=== PATIENT | male | born 1965 | race Caucasian/White ===

== ENCOUNTER 2021-07-08 11:49 | Inpatient (IN) | payer OTHER ==
[2021-07-08] MEDS ORDERED: ONDANSETRON *ODT* 4 MG TABLET SL PRN (12:50)
[2021-07-08] MEDS ORDERED: IBUPROFEN 400 MG TABLET (FP) PO PRN (12:50)
[2021-07-08] MEDS ORDERED: METHOCARBAMOL 500 MG TABLET PO PRN (12:50)
[2021-07-08] MEDS ORDERED: MAGNESIUM CITRATE 300 ML BOTTLE PO PRN (12:50)
[2021-07-08] MEDS ORDERED: NICOTINE 10 MG CARTRIDGE (INHALER) IH PRN (12:50)
[2021-07-08] MEDS ORDERED: ACETAMINOPHEN 325 MG TABLET (FP) PO PRN ×2 (12:50)
[2021-07-08] MEDS ORDERED: MAG HYDROX/AL HYDROX/SIMETH 30 ML UNIT-DOSE CUP PO PRN (12:50)
[2021-07-08] MEDS ORDERED: MENTHOL/PHENOL 1 EACH UD MM PRN (12:50)
[2021-07-08] MEDS ORDERED: MAGNESIUM HYDROX 2400MG/30ML ORAL SUSPENSION 30 ML CUP PO PRN (12:50)
[2021-07-08] MEDS ORDERED: BISMUTH SUBSALICYLATE 262 MG/15 ML BTL PO PRN (12:50)
[2021-07-08 13:03] VITALS: BMI 22.6
[2021-07-08] MEDS: hydrOXYzine PAMOATE 25 MG CAPSULE (FP) PO SCH ×3 (15:42→22:09)
[2021-07-08 16:03] LABS: HEMATOCRIT 36.9 % (35.4-49); HEMOGLOBIN 12.4 GM/dL (11.7-16.9); MCH 30.8 pg (25.7-33.7); MCHC 33.7 g/dl (32.0-35.9); MEAN CELL VOLUME 91.2 fl (80-96); MEAN PLT VOLUME 8.6 fl (7.5-11.1); PLATELET COUNT 253 10^3/uL (134-434); RBC 4.05 M/mm3 (4.00-5.60); RDW 13.7 % (11.9-15.9); WHITE BLOOD COUNT 7.3 K/mm3 (4.0-10.0)
[2021-07-08 16:11] LABS: ALBUMIN 3.3 g/dl (3.4-5.0); CALCIUM 8.7 mg/dL (8.5-10.1)
[2021-07-08 16:16] LABS: BILIRUBIN,TOTAL 0.4 mg/dL (0.2-1); TOT PROT 6.6 g/dl (6.4-8.2)
[2021-07-08] MEDS ORDERED: ALBUTEROL SO4 HFA INHALER IH PRN (19:07)
[2021-07-08] MEDS: MELATONIN 5 MG TABLETS PO SCH (22:09)
[2021-07-08] MEDS: THIAMINE HCL 100 MG TABLET (FP) PO SCH (22:09)
[2021-07-08] MEDS: lamoTRIgine 100 MG TABLET PO SCH (22:09)
[2021-07-08] MEDS: carBAMazepine 100 MG TAB.CHEW PO SCH (22:09)
[2021-07-09] MEDS: carBAMazepine 100 MG TAB.CHEW PO SCH ×3 (07:19→22:11)
[2021-07-09] MEDS: hydrOXYzine PAMOATE 25 MG CAPSULE (FP) PO SCH ×5 (07:21→22:11)
[2021-07-09] MEDS: PRENATAL VITAMINS W/ FOLIC ACID TABLET (FP) PO SCH (10:16)
[2021-07-09] MEDS: lamoTRIgine 100 MG TABLET PO SCH ×2 (10:17→22:11)
[2021-07-09] MEDS: MELATONIN 5 MG TABLETS PO SCH (22:11)
[2021-07-09] MEDS: THIAMINE HCL 100 MG TABLET (FP) PO SCH (22:11)
[2021-07-10] MEDS: carBAMazepine 100 MG TAB.CHEW PO SCH ×2 (06:57→14:34)
[2021-07-10] MEDS: hydrOXYzine PAMOATE 25 MG CAPSULE (FP) PO SCH ×3 (06:57→14:41)
[2021-07-10] MEDS: lamoTRIgine 100 MG TABLET PO SCH (10:18)
[2021-07-10] MEDS: PRENATAL VITAMINS W/ FOLIC ACID TABLET (FP) PO SCH (10:18)
[2021-07-10 13:27] VITALS: BP 124/65; PULSE 61; TEMP 98.6
== END 2021-07-10 14:44 | disposition other institution (70) | DRG 774 ==
LOC: YASAS 11:49 → UNDOADMIN 13:33 → Y3N 13:33
PROVIDERS: ADMIT Allergy & Immunology; ATTEND Allergy & Immunology
PROC: HZ2ZZZZ Detoxification Services for Substance Abuse Treatment (ICD-10-PCS; principal; 2021-07-08)
DX: F10.230 Alcohol dependence with withdrawal, uncomplicated (principal); F10.220 Alcohol dependence with intoxication, uncomplicated; F14.20 Cocaine dependence, uncomplicated; F17.210 Nicotine dependence, cigarettes, uncomplicated; G40.909 Epilepsy, unspecified, not intractable, without status epilepticus; E78.5 Hyperlipidemia, unspecified; M06.9 Rheumatoid arthritis, unspecified; R06.2 Wheezing
CPT/HCPCS: 36415; 80053; 85027; 86780; C9803; U0003; U0005

== ENCOUNTER 2021-07-10 14:57 | Inpatient (IN) | payer OTHER ==
[2021-07-10] MEDS ORDERED: guaiFENesin 200 MG/10 ML 10 ML UNIT-DOSE CUPS PO PRN (15:15)
[2021-07-10] MEDS ORDERED: hydrOXYzine PAMOATE 25 MG CAPSULE (FP) PO PRN (15:15)
[2021-07-10] MEDS ORDERED: MAG HYDROX/AL HYDROX/SIMETH 30 ML UNIT-DOSE CUP PO PRN (15:15)
[2021-07-10] MEDS ORDERED: MAGNESIUM CITRATE 300 ML BOTTLE PO PRN (15:15)
[2021-07-10] MEDS ORDERED: ACETAMINOPHEN 325 MG TABLET (FP) PO PRN (15:15)
[2021-07-10] MEDS ORDERED: MAGNESIUM HYDROX 2400MG/30ML ORAL SUSPENSION 30 ML CUP PO PRN (15:15)
[2021-07-10] MEDS ORDERED: P-EPHED 60MG/TRIPROLIDI 2.5MG TABLET PO PRN (15:15)
[2021-07-10] MEDS ORDERED: LOPERAMIDE HCL 2 MG CAPSULE PO PRN (15:15)
[2021-07-10] MEDS ORDERED: NICOTINE 10 MG CARTRIDGE (INHALER) IH PRN (15:15)
[2021-07-10] MEDS: THIAMINE HCL 100 MG TABLET (FP) PO SCH (22:01)
[2021-07-10] MEDS: lamoTRIgine 100 MG TABLET PO SCH (22:01)
[2021-07-10] MEDS: MELATONIN 5 MG TABLETS PO SCH (22:01)
[2021-07-10] MEDS: carBAMazepine 100 MG TAB.CHEW PO SCH (22:21)
[2021-07-11] MEDS: carBAMazepine 100 MG TAB.CHEW PO SCH ×3 (06:28→21:11)
[2021-07-11] MEDS: PRENATAL VITAMINS W/ FOLIC ACID TABLET (FP) PO SCH (13:12)
[2021-07-11] MEDS: lamoTRIgine 100 MG TABLET PO SCH ×2 (13:12→21:10)
[2021-07-11] MEDS: MENTHOL/PHENOL 1 EACH UD MM PRN (19:34)
[2021-07-11] MEDS: THIAMINE HCL 100 MG TABLET (FP) PO SCH (21:10)
[2021-07-11] MEDS: MELATONIN 5 MG TABLETS PO SCH (21:11)
[2021-07-12] MEDS: carBAMazepine 100 MG TAB.CHEW PO SCH ×3 (07:07→21:01)
[2021-07-12] MEDS: PRENATAL VITAMINS W/ FOLIC ACID TABLET (FP) PO SCH (10:00)
[2021-07-12] MEDS: lamoTRIgine 100 MG TABLET PO SCH ×2 (10:00→21:01)
[2021-07-12] MEDS: IBUPROFEN 400 MG TABLET (FP) PO PRN (10:10)
[2021-07-12] MEDS: THIAMINE HCL 100 MG TABLET (FP) PO SCH (21:00)
[2021-07-12] MEDS: MELATONIN 5 MG TABLETS PO SCH (21:01)
[2021-07-13] MEDS: carBAMazepine 100 MG TAB.CHEW PO SCH ×3 (06:27→21:48)
[2021-07-13] MEDS: MENTHOL/PHENOL 1 EACH UD MM PRN (06:29)
[2021-07-13] MEDS: PRENATAL VITAMINS W/ FOLIC ACID TABLET (FP) PO SCH (09:15)
[2021-07-13] MEDS: lamoTRIgine 100 MG TABLET PO SCH ×2 (09:15→21:48)
[2021-07-13] MEDS: IBUPROFEN 400 MG TABLET (FP) PO PRN (09:16)
[2021-07-13] MEDS: THIAMINE HCL 100 MG TABLET (FP) PO SCH (21:50)
[2021-07-13] MEDS: MELATONIN 5 MG TABLETS PO SCH (21:50)
[2021-07-14] MEDS: carBAMazepine 100 MG TAB.CHEW PO SCH (06:46)
[2021-07-14 07:01] VITALS: TEMP 99
[2021-07-14 09:41] VITALS: BP 139/96; PULSE 96
[2021-07-14] MEDS: lamoTRIgine 100 MG TABLET PO SCH (12:08)
[2021-07-14] MEDS: PRENATAL VITAMINS W/ FOLIC ACID TABLET (FP) PO SCH (12:08)
== END 2021-07-14 10:22 | disposition left against medical advice (07) | DRG 770 ==
LOC: YASAS 14:57 → Y3W 14:59
PROVIDERS: ADMIT Allergy & Immunology; ATTEND Allergy & Immunology
PROC: HZ42ZZZ Group Counseling for Substance Abuse Treatment, Cognitive-Behavioral (ICD-10-PCS; principal; 2021-07-10)
DX: F10.20 Alcohol dependence, uncomplicated (principal); F14.20 Cocaine dependence, uncomplicated; F17.210 Nicotine dependence, cigarettes, uncomplicated; I10 Essential (primary) hypertension; G40.909 Epilepsy, unspecified, not intractable, without status epilepticus; E78.5 Hyperlipidemia, unspecified; U07.1 COVID-19
CPT/HCPCS: 93005; 93010; C9803; U0003; U0005

== ENCOUNTER 2021-07-14 10:53 | Emergency (ER) | payer OTHER ==
[2021-07-14 11:44] VITALS: BP 131/75; PULSE 74; TEMP 98.3; BMI 28.3
== END 2021-07-14 18:33 ==
LOC: JER 10:53
DX: U07.1 COVID-19 (principal)
CPT/HCPCS: 99283-25; C9803; U0003; U0005

== ENCOUNTER 2021-08-29 13:47 | Inpatient (IN) | payer OTHER ==
[2021-08-29 15:43] VITALS: BMI 21.5
[2021-08-29] MEDS ORDERED: P-EPHED 60MG/TRIPROLIDI 2.5MG TABLET PO PRN (19:00)
[2021-08-29] MEDS ORDERED: LOPERAMIDE HCL 2 MG CAPSULE PO PRN (19:00)
[2021-08-29] MEDS ORDERED: NICOTINE 10 MG CARTRIDGE (INHALER) IH PRN (19:00)
[2021-08-29] MEDS ORDERED: MAGNESIUM HYDROX 2400MG/30ML ORAL SUSPENSION 30 ML CUP PO PRN (19:00)
[2021-08-29] MEDS ORDERED: guaiFENesin 200 MG/10 ML 10 ML UNIT-DOSE CUPS PO PRN (19:00)
[2021-08-29] MEDS ORDERED: MAGNESIUM CITRATE 300 ML BOTTLE PO PRN (19:00)
[2021-08-29] MEDS ORDERED: NICOTINE POLACRILEX 4 MG GUM BC PRN (19:00)
[2021-08-29] MEDS: hydrOXYzine PAMOATE 25 MG CAPSULE (FP) PO PRN (21:04)
[2021-08-29] MEDS: THIAMINE HCL 100 MG TABLET (FP) PO SCH (21:04)
[2021-08-29] MEDS: MELATONIN 5 MG TABLETS PO SCH (21:04)
[2021-08-30] MEDS: PRENATAL VITAMINS W/ FOLIC ACID TABLET (FP) PO SCH (10:03)
[2021-08-30] MEDS: hydrOXYzine PAMOATE 25 MG CAPSULE (FP) PO PRN (10:04)
[2021-08-30 10:51] LABS: ALBUMIN 3.5 g/dl (3.4-5.0)
[2021-08-30 10:53] LABS: BLOOD UREA NITROGEN 19.5 mg/dL (7-18); CREATININE 1.2 mg/dL (0.55-1.3)
[2021-08-30 10:55] LABS: BILIRUBIN,TOTAL 0.2 mg/dL (0.2-1); TOT PROT 6.4 g/dl (6.4-8.2)
[2021-08-30 11:06] LABS: HEMATOCRIT 42.1 % (35.4-49); HEMOGLOBIN 14.2 GM/dL (11.7-16.9); MCH 30.6 pg (25.7-33.7); MCHC 33.7 g/dl (32.0-35.9); MEAN CELL VOLUME 90.9 fl (80-96); MEAN PLT VOLUME 8.5 fl (7.5-11.1); PLATELET COUNT 215 10^3/uL (134-434); RBC 4.63 M/mm3 (4.00-5.60); RDW 14.1 % (11.9-15.9); WHITE BLOOD COUNT 6.1 K/mm3 (4.0-10.0)
[2021-08-30 11:08] LABS: SYPHILIS W/ RPR CONF NON-REACTIVE (NONREACTIVE)
[2021-08-30] MEDS: MELATONIN 5 MG TABLETS PO SCH (21:12)
[2021-08-30] MEDS: THIAMINE HCL 100 MG TABLET (FP) PO SCH (21:13)
[2021-08-31] MEDS: hydrOXYzine PAMOATE 25 MG CAPSULE (FP) PO PRN (06:52)
[2021-08-31] MEDS: lamoTRIgine 100 MG TABLET PO SCH ×2 (10:29→21:12)
[2021-08-31] MEDS: PRENATAL VITAMINS W/ FOLIC ACID TABLET (FP) PO SCH (10:30)
[2021-08-31] MEDS: carBAMazepine 100 MG TAB.CHEW PO SCH ×2 (13:58→21:12)
[2021-08-31] MEDS: MELATONIN 5 MG TABLETS PO SCH (21:12)
[2021-08-31] MEDS: THIAMINE HCL 100 MG TABLET (FP) PO SCH (21:12)
[2021-09-01] MEDS: carBAMazepine 100 MG TAB.CHEW PO SCH ×3 (07:11→21:06)
[2021-09-01] MEDS: lamoTRIgine 100 MG TABLET PO SCH ×2 (09:51→21:06)
[2021-09-01] MEDS: PRENATAL VITAMINS W/ FOLIC ACID TABLET (FP) PO SCH (09:51)
[2021-09-01] MEDS: LIDOCAINE 5% TOPICAL PATCH TP SCH (16:06)
[2021-09-01] MEDS: MAG HYDROX/AL HYDROX/SIMETH 30 ML UNIT-DOSE CUP PO PRN (18:08)
[2021-09-01] MEDS: METHOCARBAMOL 500 MG TABLET PO SCH ×2 (18:08→21:06)
[2021-09-01] MEDS: THIAMINE HCL 100 MG TABLET (FP) PO SCH (21:06)
[2021-09-01] MEDS: MELATONIN 5 MG TABLETS PO SCH (21:06)
[2021-09-01] MEDS: LIDOCAINE PATCH REMOVAL MC SCH (21:06)
[2021-09-02] MEDS: IBUPROFEN 400 MG TABLET (FP) PO PRN ×2 (07:09→21:21)
[2021-09-02] MEDS: carBAMazepine 100 MG TAB.CHEW PO SCH ×3 (07:10→21:20)
[2021-09-02] MEDS: METHOCARBAMOL 500 MG TABLET PO SCH ×4 (10:24→21:20)
[2021-09-02] MEDS: LIDOCAINE 5% TOPICAL PATCH TP SCH (10:24)
[2021-09-02] MEDS: PRENATAL VITAMINS W/ FOLIC ACID TABLET (FP) PO SCH (10:24)
[2021-09-02] MEDS: lamoTRIgine 100 MG TABLET PO SCH ×2 (10:24→21:19)
[2021-09-02 10:46] LABS: PH,URINE 6.5 (5.0-8.0); URINE APPEARANCE CLEAR; URINE BILIRUBIN NEGATIVE (NEGATIVE); URINE COLOR YELLOW; URINE GLUCOSE (UA) NEGATIVE (NEGATIVE); URINE KETONE NEGATIVE (NEGATIVE); URINE LEUK ESTERASE NEGATIVE (NEGATIVE); URINE NITRITE NEGATIVE (NEGATIVE); URINE PROTEIN NEGATIVE (NEGATIVE); URINE UROBILINOGEN 0.2 mg/dL (0.2-1.0)
[2021-09-02] MEDS: MAG HYDROX/AL HYDROX/SIMETH 30 ML UNIT-DOSE CUP PO PRN (17:42)
[2021-09-02] MEDS: MELATONIN 5 MG TABLETS PO SCH (21:20)
[2021-09-02] MEDS: THIAMINE HCL 100 MG TABLET (FP) PO SCH (21:20)
[2021-09-02] MEDS: LIDOCAINE PATCH REMOVAL MC SCH (21:20)
[2021-09-03] MEDS: carBAMazepine 100 MG TAB.CHEW PO SCH ×3 (06:38→21:23)
[2021-09-03] MEDS: LIDOCAINE 5% TOPICAL PATCH TP SCH (10:43)
[2021-09-03] MEDS: PRENATAL VITAMINS W/ FOLIC ACID TABLET (FP) PO SCH (10:44)
[2021-09-03] MEDS: METHOCARBAMOL 500 MG TABLET PO SCH ×4 (10:44→21:23)
[2021-09-03] MEDS: lamoTRIgine 100 MG TABLET PO SCH ×2 (10:44→21:23)
[2021-09-03] MEDS: IBUPROFEN 400 MG TABLET (FP) PO PRN (18:05)
[2021-09-03] MEDS: THIAMINE HCL 100 MG TABLET (FP) PO SCH (21:23)
[2021-09-03] MEDS: MELATONIN 5 MG TABLETS PO SCH (21:23)
[2021-09-03] MEDS: LIDOCAINE PATCH REMOVAL MC SCH (21:24)
[2021-09-03] MEDS: ACETAMINOPHEN 325 MG TABLET (FP) PO PRN (21:24)
[2021-09-04] MEDS: carBAMazepine 100 MG TAB.CHEW PO SCH ×3 (06:17→21:01)
[2021-09-04] MEDS: IBUPROFEN 400 MG TABLET (FP) PO PRN (06:19)
[2021-09-04] MEDS: PRENATAL VITAMINS W/ FOLIC ACID TABLET (FP) PO SCH (09:53)
[2021-09-04] MEDS: LIDOCAINE 5% TOPICAL PATCH TP SCH (09:53)
[2021-09-04] MEDS: lamoTRIgine 100 MG TABLET PO SCH ×2 (09:53→21:01)
[2021-09-04] MEDS: METHOCARBAMOL 500 MG TABLET PO SCH ×4 (09:53→21:01)
[2021-09-04] MEDS: MELATONIN 5 MG TABLETS PO SCH (21:01)
[2021-09-04] MEDS: THIAMINE HCL 100 MG TABLET (FP) PO SCH (21:01)
[2021-09-04] MEDS: LIDOCAINE PATCH REMOVAL MC SCH (21:02)
[2021-09-04] MEDS: MAG HYDROX/AL HYDROX/SIMETH 30 ML UNIT-DOSE CUP PO PRN (21:02)
[2021-09-05] MEDS: carBAMazepine 100 MG TAB.CHEW PO SCH ×3 (06:23→21:43)
[2021-09-05] MEDS: PRENATAL VITAMINS W/ FOLIC ACID TABLET (FP) PO SCH (10:16)
[2021-09-05] MEDS: METHOCARBAMOL 500 MG TABLET PO SCH ×4 (10:17→21:43)
[2021-09-05] MEDS: lamoTRIgine 100 MG TABLET PO SCH ×2 (10:17→21:43)
[2021-09-05] MEDS: LIDOCAINE 5% TOPICAL PATCH TP SCH (10:17)
[2021-09-05] MEDS: MAG HYDROX/AL HYDROX/SIMETH 30 ML UNIT-DOSE CUP PO PRN (11:50)
[2021-09-05] MEDS: IBUPROFEN 400 MG TABLET (FP) PO PRN (14:08)
[2021-09-05] MEDS: MELATONIN 5 MG TABLETS PO SCH (21:43)
[2021-09-05] MEDS: THIAMINE HCL 100 MG TABLET (FP) PO SCH (21:44)
[2021-09-05] MEDS: LIDOCAINE PATCH REMOVAL MC SCH (21:49)
[2021-09-06] MEDS: carBAMazepine 100 MG TAB.CHEW PO SCH ×3 (06:13→21:18)
[2021-09-06] MEDS: LIDOCAINE 5% TOPICAL PATCH TP SCH (09:30)
[2021-09-06] MEDS: lamoTRIgine 100 MG TABLET PO SCH ×2 (09:30→21:18)
[2021-09-06] MEDS: METHOCARBAMOL 500 MG TABLET PO SCH ×4 (09:31→21:18)
[2021-09-06] MEDS: PRENATAL VITAMINS W/ FOLIC ACID TABLET (FP) PO SCH (09:31)
[2021-09-06] MEDS ORDERED: MODERNA COVID-19 VACC,MRNA/PF 50 MCG/0.25 ML EACH IM ONE (12:00)
[2021-09-06] MEDS: COLLOIDAL OATMEAL 1 BAR EACH TP PRN (16:50)
[2021-09-06] MEDS: MAG HYDROX/AL HYDROX/SIMETH 30 ML UNIT-DOSE CUP PO PRN (18:15)
[2021-09-06] MEDS: MELATONIN 5 MG TABLETS PO SCH (21:18)
[2021-09-06] MEDS: THIAMINE HCL 100 MG TABLET (FP) PO SCH (21:18)
[2021-09-06] MEDS: LIDOCAINE PATCH REMOVAL MC SCH (21:19)
[2021-09-06] MEDS: AMMONIUM LACTATE 12% LOTION 225 GM BOTTLE TP SCH (21:19)
[2021-09-07] MEDS: carBAMazepine 100 MG TAB.CHEW PO SCH ×3 (06:06→21:14)
[2021-09-07] MEDS: METHOCARBAMOL 500 MG TABLET PO SCH ×4 (09:59→21:16)
[2021-09-07] MEDS: LIDOCAINE 5% TOPICAL PATCH TP SCH (09:59)
[2021-09-07] MEDS: AMMONIUM LACTATE 12% LOTION 225 GM BOTTLE TP SCH ×2 (09:59→21:16)
[2021-09-07] MEDS: PRENATAL VITAMINS W/ FOLIC ACID TABLET (FP) PO SCH (09:59)
[2021-09-07] MEDS: lamoTRIgine 100 MG TABLET PO SCH ×2 (09:59→21:15)
[2021-09-07] MEDS: IBUPROFEN 400 MG TABLET (FP) PO PRN (18:36)
[2021-09-07] MEDS: MELATONIN 5 MG TABLETS PO SCH (21:14)
[2021-09-07] MEDS: THIAMINE HCL 100 MG TABLET (FP) PO SCH (21:14)
[2021-09-07] MEDS: LIDOCAINE PATCH REMOVAL MC SCH (21:15)
[2021-09-08] MEDS: carBAMazepine 100 MG TAB.CHEW PO SCH ×3 (06:29→21:11)
[2021-09-08] MEDS: PRENATAL VITAMINS W/ FOLIC ACID TABLET (FP) PO SCH (10:00)
[2021-09-08] MEDS: LIDOCAINE 5% TOPICAL PATCH TP SCH (10:00)
[2021-09-08] MEDS: lamoTRIgine 100 MG TABLET PO SCH ×2 (10:00→21:11)
[2021-09-08] MEDS: AMMONIUM LACTATE 12% LOTION 225 GM BOTTLE TP SCH ×2 (10:00→21:12)
[2021-09-08] MEDS: METHOCARBAMOL 500 MG TABLET PO SCH ×4 (10:01→21:24)
[2021-09-08] MEDS: MELATONIN 5 MG TABLETS PO SCH (21:11)
[2021-09-08] MEDS: THIAMINE HCL 100 MG TABLET (FP) PO SCH (21:11)
[2021-09-08] MEDS: ACETAMINOPHEN 325 MG TABLET (FP) PO PRN (21:11)
[2021-09-08] MEDS: LIDOCAINE PATCH REMOVAL MC SCH (21:12)
[2021-09-09] MEDS: carBAMazepine 100 MG TAB.CHEW PO SCH ×3 (05:56→21:37)
[2021-09-09] MEDS: lamoTRIgine 100 MG TABLET PO SCH ×2 (09:54→21:38)
[2021-09-09] MEDS: METHOCARBAMOL 500 MG TABLET PO SCH ×4 (09:54→21:38)
[2021-09-09] MEDS: PRENATAL VITAMINS W/ FOLIC ACID TABLET (FP) PO SCH (09:54)
[2021-09-09] MEDS: LIDOCAINE 5% TOPICAL PATCH TP SCH (09:54)
[2021-09-09] MEDS: AMMONIUM LACTATE 12% LOTION 225 GM BOTTLE TP SCH ×2 (09:54→21:38)
[2021-09-09] MEDS: MAG HYDROX/AL HYDROX/SIMETH 30 ML UNIT-DOSE CUP PO PRN (19:44)
[2021-09-09] MEDS: LIDOCAINE PATCH REMOVAL MC SCH (21:38)
[2021-09-09] MEDS: MELATONIN 5 MG TABLETS PO SCH (21:38)
[2021-09-09] MEDS: THIAMINE HCL 100 MG TABLET (FP) PO SCH (21:38)
[2021-09-10] MEDS: carBAMazepine 100 MG TAB.CHEW PO SCH ×3 (06:52→21:02)
[2021-09-10] MEDS: COLLOIDAL OATMEAL 1 BAR EACH TP PRN (06:53)
[2021-09-10] MEDS: lamoTRIgine 100 MG TABLET PO SCH ×2 (10:20→21:01)
[2021-09-10] MEDS: AMMONIUM LACTATE 12% LOTION 225 GM BOTTLE TP SCH ×2 (10:22→21:02)
[2021-09-10] MEDS: BACITRACIN 0.9 GM PACKET TP SCH (10:22)
[2021-09-10] MEDS: LIDOCAINE 5% TOPICAL PATCH TP SCH (10:22)
[2021-09-10] MEDS: PRENATAL VITAMINS W/ FOLIC ACID TABLET (FP) PO SCH (11:55)
[2021-09-10] MEDS: METHOCARBAMOL 500 MG TABLET PO SCH ×4 (11:55→21:02)
[2021-09-10] MEDS: SIMETHICONE 80 MG TAB.CHEW (FP) PO PRN ×2 (12:56→18:11)
[2021-09-10] MEDS: THIAMINE HCL 100 MG TABLET (FP) PO SCH (21:01)
[2021-09-10] MEDS: MELATONIN 5 MG TABLETS PO SCH (21:02)
[2021-09-10] MEDS: LIDOCAINE PATCH REMOVAL MC SCH (21:02)
[2021-09-11] MEDS: carBAMazepine 100 MG TAB.CHEW PO SCH ×3 (06:44→21:05)
[2021-09-11] MEDS: PRENATAL VITAMINS W/ FOLIC ACID TABLET (FP) PO SCH (09:29)
[2021-09-11] MEDS: AMMONIUM LACTATE 12% LOTION 225 GM BOTTLE TP SCH ×2 (09:29→21:06)
[2021-09-11] MEDS: BACITRACIN 0.9 GM PACKET TP SCH (09:30)
[2021-09-11] MEDS: METHOCARBAMOL 500 MG TABLET PO SCH ×4 (09:30→21:07)
[2021-09-11] MEDS: lamoTRIgine 100 MG TABLET PO SCH ×2 (09:30→21:05)
[2021-09-11] MEDS: ACETAMINOPHEN 325 MG TABLET (FP) PO PRN (09:31)
[2021-09-11] MEDS: LIDOCAINE 5% TOPICAL PATCH TP SCH (09:31)
[2021-09-11] MEDS: SIMETHICONE 80 MG TAB.CHEW (FP) PO PRN ×2 (16:43→21:06)
[2021-09-11] MEDS: THIAMINE HCL 100 MG TABLET (FP) PO SCH (21:05)
[2021-09-11] MEDS: MELATONIN 5 MG TABLETS PO SCH (21:05)
[2021-09-11] MEDS: LIDOCAINE PATCH REMOVAL MC SCH (21:06)
[2021-09-12] MEDS: carBAMazepine 100 MG TAB.CHEW PO SCH ×3 (06:48→21:25)
[2021-09-12] MEDS: LIDOCAINE 5% TOPICAL PATCH TP SCH (09:38)
[2021-09-12] MEDS: BACITRACIN 0.9 GM PACKET TP SCH (09:38)
[2021-09-12] MEDS: PRENATAL VITAMINS W/ FOLIC ACID TABLET (FP) PO SCH (09:38)
[2021-09-12] MEDS: lamoTRIgine 100 MG TABLET PO SCH ×2 (09:38→21:25)
[2021-09-12] MEDS: AMMONIUM LACTATE 12% LOTION 225 GM BOTTLE TP SCH ×2 (09:38→21:25)
[2021-09-12] MEDS: METHOCARBAMOL 500 MG TABLET PO SCH ×4 (09:38→21:26)
[2021-09-12] MEDS: SIMETHICONE 80 MG TAB.CHEW (FP) PO PRN (13:38)
[2021-09-12] MEDS: THIAMINE HCL 100 MG TABLET (FP) PO SCH (21:25)
[2021-09-12] MEDS: MELATONIN 5 MG TABLETS PO SCH (21:25)
[2021-09-12] MEDS: LIDOCAINE PATCH REMOVAL MC SCH (21:25)
[2021-09-13] MEDS: carBAMazepine 100 MG TAB.CHEW PO SCH ×3 (06:16→21:02)
[2021-09-13] MEDS: BACITRACIN 0.9 GM PACKET TP SCH (09:56)
[2021-09-13] MEDS: METHOCARBAMOL 500 MG TABLET PO SCH ×4 (09:56→21:56)
[2021-09-13] MEDS: PRENATAL VITAMINS W/ FOLIC ACID TABLET (FP) PO SCH (09:56)
[2021-09-13] MEDS: lamoTRIgine 100 MG TABLET PO SCH ×2 (09:56→21:01)
[2021-09-13] MEDS: AMMONIUM LACTATE 12% LOTION 225 GM BOTTLE TP SCH ×2 (09:57→21:56)
[2021-09-13] MEDS: SIMETHICONE 80 MG TAB.CHEW (FP) PO PRN ×2 (09:58→21:03)
[2021-09-13] MEDS: LIDOCAINE 5% TOPICAL PATCH TP SCH (10:41)
[2021-09-13] MEDS: THIAMINE HCL 100 MG TABLET (FP) PO SCH (21:02)
[2021-09-13] MEDS: MELATONIN 5 MG TABLETS PO SCH (21:02)
[2021-09-13] MEDS: LIDOCAINE PATCH REMOVAL MC SCH (21:56)
[2021-09-14] MEDS: carBAMazepine 100 MG TAB.CHEW PO SCH ×3 (06:11→21:06)
[2021-09-14] MEDS: METHOCARBAMOL 500 MG TABLET PO SCH ×4 (09:51→21:07)
[2021-09-14] MEDS: BACITRACIN 0.9 GM PACKET TP SCH (09:51)
[2021-09-14] MEDS: LIDOCAINE 5% TOPICAL PATCH TP SCH (09:51)
[2021-09-14] MEDS: PRENATAL VITAMINS W/ FOLIC ACID TABLET (FP) PO SCH (09:51)
[2021-09-14] MEDS: lamoTRIgine 100 MG TABLET PO SCH ×2 (09:51→21:06)
[2021-09-14] MEDS: AMMONIUM LACTATE 12% LOTION 225 GM BOTTLE TP SCH ×2 (09:51→21:07)
[2021-09-14] MEDS: ACETAMINOPHEN 325 MG TABLET (FP) PO PRN (09:52)
[2021-09-14] MEDS: SIMETHICONE 80 MG TAB.CHEW (FP) PO PRN ×2 (09:52→21:06)
[2021-09-14] MEDS: THIAMINE HCL 100 MG TABLET (FP) PO SCH (21:06)
[2021-09-14] MEDS: MELATONIN 5 MG TABLETS PO SCH (21:06)
[2021-09-14] MEDS: LIDOCAINE PATCH REMOVAL MC SCH (21:07)
[2021-09-15] MEDS: carBAMazepine 100 MG TAB.CHEW PO SCH ×3 (06:31→21:02)
[2021-09-15] MEDS: BACITRACIN 0.9 GM PACKET TP SCH (09:51)
[2021-09-15] MEDS: PRENATAL VITAMINS W/ FOLIC ACID TABLET (FP) PO SCH (09:51)
[2021-09-15] MEDS: lamoTRIgine 100 MG TABLET PO SCH ×2 (09:51→21:02)
[2021-09-15] MEDS: AMMONIUM LACTATE 12% LOTION 225 GM BOTTLE TP SCH ×2 (09:52→21:03)
[2021-09-15] MEDS: COLLOIDAL OATMEAL 1 BAR EACH TP PRN (09:52)
[2021-09-15] MEDS: LIDOCAINE 5% TOPICAL PATCH TP SCH (09:53)
[2021-09-15] MEDS: METHOCARBAMOL 500 MG TABLET PO SCH ×4 (09:53→21:03)
[2021-09-15] MEDS: MELATONIN 5 MG TABLETS PO SCH (21:02)
[2021-09-15] MEDS: THIAMINE HCL 100 MG TABLET (FP) PO SCH (21:03)
[2021-09-15] MEDS: LIDOCAINE PATCH REMOVAL MC SCH (21:03)
[2021-09-16] MEDS: carBAMazepine 100 MG TAB.CHEW PO SCH (06:14)
[2021-09-16 06:53] VITALS: BP 138/84; PULSE 62; TEMP 98.2
[2021-09-16] MEDS: lamoTRIgine 100 MG TABLET PO SCH (09:09)
[2021-09-16] MEDS: METHOCARBAMOL 500 MG TABLET PO SCH (09:09)
[2021-09-16] MEDS: PRENATAL VITAMINS W/ FOLIC ACID TABLET (FP) PO SCH (09:09)
[2021-09-16] MEDS: LIDOCAINE 5% TOPICAL PATCH TP SCH (09:09)
== END 2021-09-16 09:12 | disposition home or self-care (01) | DRG 774 ==
LOC: YASAS 13:47 → Y3W 19:08
PROVIDERS: ADMIT Allergy & Immunology; ATTEND Allergy & Immunology
DX: F10.20 Alcohol dependence, uncomplicated (principal); F14.20 Cocaine dependence, uncomplicated; F17.210 Nicotine dependence, cigarettes, uncomplicated; F41.9 Anxiety disorder, unspecified; K21.9 Gastro-esophageal reflux disease without esophagitis; M06.9 Rheumatoid arthritis, unspecified; M54.50 Low back pain, unspecified; G89.29 Other chronic pain; R26.89 Other abnormalities of gait and mobility; R63.4 Abnormal weight loss; Z68.21 Body mass index [BMI] 21.0-21.9, adult; Z99.89 Dependence on other enabling machines and devices; Z86.16 Personal history of COVID-19
CPT/HCPCS: 0013A; 36415; 80053; 80156; 81003; 85027; 86780; 86803; 91301; C9803; U0003; U0005

== ENCOUNTER 2022-01-15 12:46 | Inpatient (IN) | payer OTHER ==
[2022-01-15] MEDS ORDERED: LORazepam 2 MG/ML SDV VIAL IM ONE (13:44)
[2022-01-15] MEDS ORDERED: LOPERAMIDE HCL 2 MG CAPSULE PO PRN (23:04)
[2022-01-15] MEDS ORDERED: NICOTINE POLACRILEX 2 MG GUM BC PRN (23:04)
[2022-01-15] MEDS ORDERED: P-EPHED 60MG/TRIPROLIDI 2.5MG TABLET PO PRN (23:04)
[2022-01-15] MEDS ORDERED: MAG HYDROX/AL HYDROX/SIMETH 30 ML UNIT-DOSE CUP PO PRN (23:04)
[2022-01-15] MEDS ORDERED: guaiFENesin 200 MG/10 ML 10 ML UNIT-DOSE CUPS PO PRN (23:04)
[2022-01-15] MEDS ORDERED: ACETAMINOPHEN 325 MG TABLET (FP) PO PRN (23:04)
[2022-01-15] MEDS ORDERED: IBUPROFEN 400 MG TABLET (FP) PO PRN (23:04)
[2022-01-15] MEDS ORDERED: MAGNESIUM CITRATE 300 ML BOTTLE PO PRN (23:04)
[2022-01-15] MEDS ORDERED: MAGNESIUM HYDROX 2400MG/30ML ORAL SUSPENSION 30 ML CUP PO PRN (23:04)
[2022-01-15 23:34] VITALS: BMI 25.1
[2022-01-16] MEDS: MELATONIN 5 MG TABLETS PO SCH ×2 (04:12→21:45)
[2022-01-16 09:39] LABS: CALCIUM 8.4 mg/dL (8.5-10.1)
[2022-01-16 09:40] LABS: ALBUMIN 3.5 g/dl (3.4-5.0); BLOOD UREA NITROGEN 23.7 mg/dL (7-18)
[2022-01-16 09:43] LABS: CREATININE 1.3 mg/dL (0.55-1.3)
[2022-01-16 09:44] LABS: BILIRUBIN,TOTAL 0.9 mg/dL (0.2-1)
[2022-01-16 09:45] LABS: TOT PROT 6.4 g/dl (6.4-8.2)
[2022-01-16 09:48] LABS: HEMATOCRIT 38.7 % (35.4-49); HEMOGLOBIN 12.8 GM/dL (11.7-16.9); MCH 30.6 pg (25.7-33.7); MCHC 33.1 g/dl (32.0-35.9); MEAN CELL VOLUME 92.5 fl (80-96); MEAN PLT VOLUME 8.9 fl (7.5-11.1); PLATELET COUNT 211 10^3/uL (134-434); RBC 4.18 M/mm3 (4.00-5.60); RDW 13.3 % (11.9-15.9); WHITE BLOOD COUNT 11.7 K/mm3 (4.0-10.0)
[2022-01-16] MEDS: NICOTINE 21 MG/24 HOURS TOPICAL PATCH TD SCH (10:51)
[2022-01-16] MEDS: PRENATAL VITAMINS W/ FOLIC ACID TABLET (FP) PO SCH (10:51)
[2022-01-16] MEDS: hydrOXYzine PAMOATE 25 MG CAPSULE (FP) PO PRN (10:51)
[2022-01-16 10:52] LABS: SYPHILIS W/ RPR CONF NON-REACTIVE (NONREACTIVE)
[2022-01-16] MEDS: lamoTRIgine 100 MG TABLET PO SCH ×2 (11:23→21:45)
[2022-01-16] MEDS: THIAMINE HCL 100 MG TABLET (FP) PO SCH (21:45)
[2022-01-16] MEDS: carBAMazepine 100 MG TAB.CHEW PO SCH ×2 (21:45→22:25)
[2022-01-17] MEDS: carBAMazepine 100 MG TAB.CHEW PO SCH ×3 (06:30→21:28)
[2022-01-17] MEDS: PRENATAL VITAMINS W/ FOLIC ACID TABLET (FP) PO SCH (10:01)
[2022-01-17] MEDS: lamoTRIgine 100 MG TABLET PO SCH ×2 (10:01→21:27)
[2022-01-17] MEDS: NICOTINE 21 MG/24 HOURS TOPICAL PATCH TD SCH (10:02)
[2022-01-17 10:43] LABS: URINE APPEARANCE CLEAR; URINE BILIRUBIN NEGATIVE (NEGATIVE); URINE COLOR YELLOW; URINE GLUCOSE (UA) NEGATIVE (NEGATIVE); URINE KETONE NEGATIVE (NEGATIVE); URINE LEUK ESTERASE NEGATIVE (NEGATIVE); URINE NITRITE NEGATIVE (NEGATIVE); URINE PROTEIN TRACE (NEGATIVE); URINE UROBILINOGEN 0.2 mg/dL (0.2-1.0)
[2022-01-17 10:49] LABS: EPI CELLS 8 /uL (0-25.1); HYALINE CASTS 2 /uL (0-3.1); URINE BACTERIA 12 /uL (0-1359); URINE RBC 23 /uL (0-23.9); URINE WBC 9 /uL (0-25.8)
[2022-01-17] MEDS: MELATONIN 5 MG TABLETS PO SCH (21:27)
[2022-01-17] MEDS: THIAMINE HCL 100 MG TABLET (FP) PO SCH (21:28)
[2022-01-18] MEDS: carBAMazepine 100 MG TAB.CHEW PO SCH ×3 (06:25→22:01)
[2022-01-18] MEDS: NICOTINE 21 MG/24 HOURS TOPICAL PATCH TD SCH (09:43)
[2022-01-18] MEDS: lamoTRIgine 100 MG TABLET PO SCH ×2 (09:43→22:01)
[2022-01-18] MEDS: PRENATAL VITAMINS W/ FOLIC ACID TABLET (FP) PO SCH (09:43)
[2022-01-18] MEDS: MELATONIN 5 MG TABLETS PO SCH (22:01)
[2022-01-18] MEDS: THIAMINE HCL 100 MG TABLET (FP) PO SCH (22:01)
[2022-01-19] MEDS: carBAMazepine 100 MG TAB.CHEW PO SCH ×3 (06:22→21:01)
[2022-01-19] MEDS: PRENATAL VITAMINS W/ FOLIC ACID TABLET (FP) PO SCH (09:59)
[2022-01-19] MEDS: NICOTINE 21 MG/24 HOURS TOPICAL PATCH TD SCH (09:59)
[2022-01-19] MEDS: lamoTRIgine 100 MG TABLET PO SCH ×2 (09:59→21:01)
[2022-01-19] MEDS: MELATONIN 5 MG TABLETS PO SCH (21:01)
[2022-01-19] MEDS: THIAMINE HCL 100 MG TABLET (FP) PO SCH (21:01)
[2022-01-20] MEDS: carBAMazepine 100 MG TAB.CHEW PO SCH ×3 (05:58→21:34)
[2022-01-20] MEDS: lamoTRIgine 100 MG TABLET PO SCH ×2 (10:01→21:34)
[2022-01-20] MEDS: PRENATAL VITAMINS W/ FOLIC ACID TABLET (FP) PO SCH (10:01)
[2022-01-20] MEDS: NICOTINE 21 MG/24 HOURS TOPICAL PATCH TD SCH (10:02)
[2022-01-20] MEDS: MELATONIN 5 MG TABLETS PO SCH (21:34)
[2022-01-20] MEDS: THIAMINE HCL 100 MG TABLET (FP) PO SCH (21:34)
[2022-01-21] MEDS: carBAMazepine 100 MG TAB.CHEW PO SCH ×3 (06:13→22:06)
[2022-01-21] MEDS: hydrOXYzine PAMOATE 25 MG CAPSULE (FP) PO PRN (10:06)
[2022-01-21] MEDS: lamoTRIgine 100 MG TABLET PO SCH ×2 (10:06→22:06)
[2022-01-21] MEDS: PRENATAL VITAMINS W/ FOLIC ACID TABLET (FP) PO SCH (10:06)
[2022-01-21] MEDS: NICOTINE 21 MG/24 HOURS TOPICAL PATCH TD SCH (10:58)
[2022-01-21] MEDS ORDERED: NICOTINE 10 MG CARTRIDGE (INHALER) IH PRN (11:30)
[2022-01-21] MEDS ORDERED: NICOTINE 21 MG/24 HOURS TOPICAL PATCH TD PRN (11:31)
[2022-01-21] MEDS: THIAMINE HCL 100 MG TABLET (FP) PO SCH (22:06)
[2022-01-21] MEDS: MELATONIN 5 MG TABLETS PO SCH (22:06)
[2022-01-22] MEDS: carBAMazepine 100 MG TAB.CHEW PO SCH ×3 (06:57→21:01)
[2022-01-22] MEDS: lamoTRIgine 100 MG TABLET PO SCH ×2 (10:17→21:01)
[2022-01-22] MEDS: PRENATAL VITAMINS W/ FOLIC ACID TABLET (FP) PO SCH (10:17)
[2022-01-22] MEDS: hydrOXYzine PAMOATE 25 MG CAPSULE (FP) PO PRN (13:35)
[2022-01-22] MEDS: THIAMINE HCL 100 MG TABLET (FP) PO SCH (21:01)
[2022-01-22] MEDS: MELATONIN 5 MG TABLETS PO SCH (21:01)
[2022-01-23] MEDS: carBAMazepine 100 MG TAB.CHEW PO SCH ×3 (06:49→21:29)
[2022-01-23] MEDS: PRENATAL VITAMINS W/ FOLIC ACID TABLET (FP) PO SCH (10:07)
[2022-01-23] MEDS: lamoTRIgine 100 MG TABLET PO SCH ×2 (10:07→21:28)
[2022-01-23] MEDS: hydrOXYzine PAMOATE 25 MG CAPSULE (FP) PO PRN (13:56)
[2022-01-23] MEDS: MELATONIN 5 MG TABLETS PO SCH (21:29)
[2022-01-23] MEDS: THIAMINE HCL 100 MG TABLET (FP) PO SCH (21:29)
[2022-01-24] MEDS: carBAMazepine 100 MG TAB.CHEW PO SCH ×3 (06:54→21:36)
[2022-01-24] MEDS: lamoTRIgine 100 MG TABLET PO SCH ×2 (10:49→21:36)
[2022-01-24] MEDS: PRENATAL VITAMINS W/ FOLIC ACID TABLET (FP) PO SCH (10:49)
[2022-01-24] MEDS: hydrOXYzine PAMOATE 25 MG CAPSULE (FP) PO PRN (14:54)
[2022-01-24] MEDS: MELATONIN 5 MG TABLETS PO SCH (21:36)
[2022-01-24] MEDS: THIAMINE HCL 100 MG TABLET (FP) PO SCH (21:36)
[2022-01-25] MEDS: carBAMazepine 100 MG TAB.CHEW PO SCH ×3 (06:47→21:00)
[2022-01-25] MEDS: PRENATAL VITAMINS W/ FOLIC ACID TABLET (FP) PO SCH (10:26)
[2022-01-25] MEDS: lamoTRIgine 100 MG TABLET PO SCH ×2 (10:26→21:00)
[2022-01-25] MEDS: hydrOXYzine PAMOATE 25 MG CAPSULE (FP) PO PRN (13:53)
[2022-01-25] MEDS: THIAMINE HCL 100 MG TABLET (FP) PO SCH (21:00)
[2022-01-25] MEDS: MELATONIN 5 MG TABLETS PO SCH (21:00)
[2022-01-26] MEDS: carBAMazepine 100 MG TAB.CHEW PO SCH ×3 (06:33→21:00)
[2022-01-26] MEDS: PRENATAL VITAMINS W/ FOLIC ACID TABLET (FP) PO SCH (10:13)
[2022-01-26] MEDS: lamoTRIgine 100 MG TABLET PO SCH ×2 (10:13→21:00)
[2022-01-26] MEDS: hydrOXYzine PAMOATE 25 MG CAPSULE (FP) PO PRN (14:08)
[2022-01-26] MEDS: MELATONIN 5 MG TABLETS PO SCH (21:00)
[2022-01-26] MEDS: THIAMINE HCL 100 MG TABLET (FP) PO SCH (21:00)
[2022-01-27] MEDS: carBAMazepine 100 MG TAB.CHEW PO SCH ×3 (06:52→21:01)
[2022-01-27] MEDS: lamoTRIgine 100 MG TABLET PO SCH ×2 (10:24→21:00)
[2022-01-27] MEDS: PRENATAL VITAMINS W/ FOLIC ACID TABLET (FP) PO SCH (10:24)
[2022-01-27] MEDS: hydrOXYzine PAMOATE 25 MG CAPSULE (FP) PO PRN (14:16)
[2022-01-27] MEDS: THIAMINE HCL 100 MG TABLET (FP) PO SCH (21:01)
[2022-01-27] MEDS: MELATONIN 5 MG TABLETS PO SCH (21:01)
[2022-01-28] MEDS: carBAMazepine 100 MG TAB.CHEW PO SCH ×3 (06:43→21:00)
[2022-01-28] MEDS: PRENATAL VITAMINS W/ FOLIC ACID TABLET (FP) PO SCH (10:31)
[2022-01-28] MEDS: lamoTRIgine 100 MG TABLET PO SCH ×2 (10:31→21:00)
[2022-01-28] MEDS: hydrOXYzine PAMOATE 25 MG CAPSULE (FP) PO PRN (14:42)
[2022-01-28] MEDS: THIAMINE HCL 100 MG TABLET (FP) PO SCH (21:00)
[2022-01-28] MEDS: MELATONIN 5 MG TABLETS PO SCH (21:01)
[2022-01-29] MEDS: carBAMazepine 100 MG TAB.CHEW PO SCH ×3 (05:48→21:02)
[2022-01-29] MEDS: PRENATAL VITAMINS W/ FOLIC ACID TABLET (FP) PO SCH (09:43)
[2022-01-29] MEDS: lamoTRIgine 100 MG TABLET PO SCH ×2 (09:43→21:01)
[2022-01-29] MEDS: MELATONIN 5 MG TABLETS PO SCH (21:01)
[2022-01-29] MEDS: THIAMINE HCL 100 MG TABLET (FP) PO SCH (21:02)
[2022-01-30] MEDS: carBAMazepine 100 MG TAB.CHEW PO SCH ×3 (06:03→21:03)
[2022-01-30 08:33] VITALS: PULSE 67
[2022-01-30] MEDS: PRENATAL VITAMINS W/ FOLIC ACID TABLET (FP) PO SCH (10:25)
[2022-01-30] MEDS: lamoTRIgine 100 MG TABLET PO SCH ×2 (10:25→21:03)
[2022-01-30] MEDS: hydrOXYzine PAMOATE 25 MG CAPSULE (FP) PO PRN (13:41)
[2022-01-30] MEDS: MELATONIN 5 MG TABLETS PO SCH (21:03)
[2022-01-30] MEDS: THIAMINE HCL 100 MG TABLET (FP) PO SCH (21:04)
[2022-01-31] MEDS: carBAMazepine 100 MG TAB.CHEW PO SCH (06:09)
[2022-01-31 07:05] VITALS: BP 127/67; TEMP 98.7
== END 2022-01-31 09:17 | disposition home or self-care (01) | DRG 772 ==
LOC: YASAS 12:46 → Y3W 01-16 03:10
PROVIDERS: ADMIT Allergy & Immunology; ATTEND Psychiatry & Neurology Pain Medicine
PROC: HZ42ZZZ Group Counseling for Substance Abuse Treatment, Cognitive-Behavioral (ICD-10-PCS; principal; 2022-01-16)
DX: F10.20 Alcohol dependence, uncomplicated (principal); F14.20 Cocaine dependence, uncomplicated; F17.210 Nicotine dependence, cigarettes, uncomplicated; F19.282 Other psychoactive substance dependence with psychoactive substance-induced sleep disorder; F41.9 Anxiety disorder, unspecified; G40.909 Epilepsy, unspecified, not intractable, without status epilepticus; E78.5 Hyperlipidemia, unspecified; K21.9 Gastro-esophageal reflux disease without esophagitis; M06.9 Rheumatoid arthritis, unspecified; M54.50 Low back pain, unspecified; G89.29 Other chronic pain; Z91.81 History of falling
CPT/HCPCS: 36415; 70450-TC; 72125-TC; 80053; 80156; 80175; 80307; 81003; 82962; 83735; 84100; 85025; 85027; 86780; 86803; 87811; C9803-CS; U0003; U0005

== ENCOUNTER 2022-11-08 17:12 | Inpatient (IN) | payer OTHER ==
[2022-11-08 20:16] VITALS: BMI 24.6
[2022-11-08] MEDS ORDERED: BENZOCAINE/MENTHOL (CHLORASEPTIC ) LOZENGE MM PRN (22:32)
[2022-11-08] MEDS ORDERED: MAGNESIUM HYDROX 2400MG/30ML ORAL SUSPENSION 30 ML CUP PO PRN (22:32)
[2022-11-08] MEDS ORDERED: ACETAMINOPHEN 325 MG TABLET (FP) PO PRN (22:32)
[2022-11-08] MEDS ORDERED: POLYETHYLENE GLYCOL (HEALTHYLAX) 3350 17 GM PACKET PO PRN (22:32)
[2022-11-08] MEDS ORDERED: NALOXONE HCL (KLOXXADO) 8 MG SPRAY NS PRN (22:32)
[2022-11-08] MEDS ORDERED: NALOXONE HCL 0.4 MG/ML VIAL IM PRN (22:32)
[2022-11-08] MEDS ORDERED: IBUPROFEN 600 MG TABLET (FP) PO PRN (22:32)
[2022-11-08] MEDS ORDERED: COLLOIDAL OATMEAL 1 BAR EACH TP PRN (22:32)
[2022-11-08] MEDS ORDERED: BENZONATATE 200 MG CAPSULE PO PRN (22:32)
[2022-11-08] MEDS ORDERED: NICOTINE 10 MG CARTRIDGE (INHALER) IH PRN (22:32)
[2022-11-08] MEDS ORDERED: IBUPROFEN 400 MG TABLET (FP) PO PRN (22:32)
[2022-11-08] MEDS ORDERED: AMMONIUM LACTATE 12% LOTION 225 GM BOTTLE TP PRN (22:32)
[2022-11-08] MEDS ORDERED: guaiFENesin 600 MG TABLET.ER (FP) PO PRN (22:32)
[2022-11-08] MEDS ORDERED: LOPERAMIDE HCL 2 MG CAPSULE PO PRN (22:32)
[2022-11-08] MEDS ORDERED: MAG HYDROX/AL HYDROX/SIMETH 30 ML UNIT-DOSE CUP PO PRN (22:32)
[2022-11-09] MEDS ORDERED: TUBERCULIN PPD 5 TU/0.1ML SYRINGE (IN PATIENT USE ONLY) ID ONE (02:00)
[2022-11-09] MEDS: MELATONIN 5 MG TABLETS PO SCH ×2 (02:06→21:28)
[2022-11-09] MEDS ORDERED: TUBERCULIN PPD 5 TU/0.1ML VIAL ID ONE (06:09)
[2022-11-09] MEDS: PRENATAL VITAMINS W/ FOLIC ACID TABLET (FP) PO SCH (09:24)
[2022-11-09] MEDS: NICOTINE 14 MG/24 HOURS TOPICAL PATCH TD SCH (09:25)
[2022-11-09] MEDS: lamoTRIgine 100 MG TABLET PO SCH ×2 (10:05→21:29)
[2022-11-09 11:05] LABS: HEMATOCRIT 38.6 % (35.4-49); HEMOGLOBIN 13.6 GM/dL (11.7-16.9); MCH 31.4 pg (25.7-33.7); MCHC 35.1 g/dl (32.0-35.9); MEAN CELL VOLUME 89.2 fl (80-96); MEAN PLT VOLUME 9.2 fl (7.5-11.1); PLATELET COUNT 208 10^3/uL (134-434); RBC 4.33 M/mm3 (4.00-5.60); RDW 13.2 % (11.9-15.9); WHITE BLOOD COUNT 5.6 K/mm3 (4.0-10.0)
[2022-11-09 11:20] LABS: CALCIUM 8.9 mg/dL (8.5-10.1)
[2022-11-09 11:21] LABS: ALBUMIN 3.2 g/dl (3.4-5.0); BLOOD UREA NITROGEN 22.2 mg/dL (7-18)
[2022-11-09 11:24] LABS: CREATININE 1.7 mg/dL (0.55-1.3)
[2022-11-09 11:25] LABS: BILIRUBIN,TOTAL 0.4 mg/dL (0.2-1); TOT PROT 6.2 g/dl (6.4-8.2)
[2022-11-09 11:39] LABS: URINE APPEARANCE CLEAR; URINE BILIRUBIN NEGATIVE (NEGATIVE); URINE COLOR YELLOW; URINE GLUCOSE (UA) NEGATIVE (NEGATIVE)
[2022-11-09 11:40] LABS: PH,URINE 5.5 (5.0-8.0); URINE KETONE NEGATIVE (NEGATIVE); URINE LEUK ESTERASE NEGATIVE (NEGATIVE); URINE NITRITE NEGATIVE (NEGATIVE); URINE PROTEIN TRACE (NEGATIVE); URINE RBC 3.1 /uL (0-23.9); URINE UROBILINOGEN 0.2 mg/dL (0.2-1.0); URINE WBC 8.5 /uL (0-25.8)
[2022-11-09 11:41] LABS: EPI CELLS 3.6 /uL (0-25.1); HYALINE CASTS 1.1 /uL (0-3.1); URINE BACTERIA 0.9 /uL (0-1359)
[2022-11-09] MEDS: carBAMazepine 100 MG TAB.CHEW PO SCH ×2 (13:32→21:29)
[2022-11-09] MEDS: THIAMINE HCL 100 MG TABLET (FP) PO SCH (21:29)
[2022-11-09] MEDS: hydrOXYzine PAMOATE 25 MG CAPSULE (FP) PO PRN (21:29)
[2022-11-10] MEDS: carBAMazepine 100 MG TAB.CHEW PO SCH ×3 (06:24→21:23)
[2022-11-10] MEDS: lamoTRIgine 100 MG TABLET PO SCH ×2 (09:46→21:23)
[2022-11-10] MEDS: PRENATAL VITAMINS W/ FOLIC ACID TABLET (FP) PO SCH (09:46)
[2022-11-10] MEDS: NICOTINE 14 MG/24 HOURS TOPICAL PATCH TD SCH (09:46)
[2022-11-10] MEDS: MELATONIN 5 MG TABLETS PO SCH (21:23)
[2022-11-10] MEDS: THIAMINE HCL 100 MG TABLET (FP) PO SCH (21:23)
[2022-11-11] MEDS: carBAMazepine 100 MG TAB.CHEW PO SCH ×3 (06:45→21:13)
[2022-11-11] MEDS: lamoTRIgine 100 MG TABLET PO SCH ×2 (09:26→21:13)
[2022-11-11] MEDS: PRENATAL VITAMINS W/ FOLIC ACID TABLET (FP) PO SCH (09:26)
[2022-11-11] MEDS: NICOTINE 14 MG/24 HOURS TOPICAL PATCH TD SCH (09:26)
[2022-11-11] MEDS: hydrOXYzine PAMOATE 25 MG CAPSULE (FP) PO PRN (21:13)
[2022-11-11] MEDS: THIAMINE HCL 100 MG TABLET (FP) PO SCH (21:13)
[2022-11-11] MEDS: MELATONIN 5 MG TABLETS PO SCH (21:13)
[2022-11-12] MEDS: carBAMazepine 100 MG TAB.CHEW PO SCH ×3 (06:56→21:13)
[2022-11-12] MEDS: lamoTRIgine 100 MG TABLET PO SCH ×2 (09:37→21:13)
[2022-11-12] MEDS: NICOTINE 14 MG/24 HOURS TOPICAL PATCH TD SCH (09:38)
[2022-11-12] MEDS: PRENATAL VITAMINS W/ FOLIC ACID TABLET (FP) PO SCH (09:38)
[2022-11-12] MEDS: MELATONIN 5 MG TABLETS PO SCH (21:13)
[2022-11-12] MEDS: hydrOXYzine PAMOATE 25 MG CAPSULE (FP) PO PRN (21:14)
[2022-11-12] MEDS: THIAMINE HCL 100 MG TABLET (FP) PO SCH (21:14)
[2022-11-13] MEDS: carBAMazepine 100 MG TAB.CHEW PO SCH ×3 (06:48→21:09)
[2022-11-13 07:03] VITALS: PULSE 79
[2022-11-13] MEDS: NICOTINE 14 MG/24 HOURS TOPICAL PATCH TD SCH (09:37)
[2022-11-13] MEDS: lamoTRIgine 100 MG TABLET PO SCH ×2 (09:37→21:09)
[2022-11-13] MEDS: PRENATAL VITAMINS W/ FOLIC ACID TABLET (FP) PO SCH (09:37)
[2022-11-13] MEDS: MELATONIN 5 MG TABLETS PO SCH (21:08)
[2022-11-13] MEDS: hydrOXYzine PAMOATE 25 MG CAPSULE (FP) PO PRN (21:09)
[2022-11-13] MEDS: THIAMINE HCL 100 MG TABLET (FP) PO SCH (21:09)
[2022-11-14] MEDS: carBAMazepine 100 MG TAB.CHEW PO SCH ×2 (06:16→13:52)
[2022-11-14 07:42] VITALS: BP 120/78; RESP 18; TEMP 98.9
[2022-11-14] MEDS: lamoTRIgine 100 MG TABLET PO SCH (10:12)
[2022-11-14] MEDS: NICOTINE 14 MG/24 HOURS TOPICAL PATCH TD SCH (10:12)
[2022-11-14] MEDS: PRENATAL VITAMINS W/ FOLIC ACID TABLET (FP) PO SCH (10:12)
[2022-11-14 10:39] LABS: URINE APPEARANCE CLEAR; URINE BILIRUBIN NEGATIVE (NEGATIVE); URINE COLOR YELLOW; URINE GLUCOSE (UA) NEGATIVE (NEGATIVE); URINE KETONE NEGATIVE (NEGATIVE); URINE LEUK ESTERASE NEGATIVE (NEGATIVE); URINE NITRITE NEGATIVE (NEGATIVE); URINE PROTEIN NEGATIVE (NEGATIVE); URINE UROBILINOGEN 0.2 mg/dL (0.2-1.0)
== END 2022-11-14 14:14 | disposition left against medical advice (07) | DRG 770 ==
LOC: YASAS 17:12 → Y3E 11-09 01:47
PROVIDERS: ADMIT Allergy & Immunology; ATTEND Psychiatry & Neurology Pain Medicine
PROC: HZ42ZZZ Group Counseling for Substance Abuse Treatment, Cognitive-Behavioral (ICD-10-PCS; principal; 2022-11-09)
DX: F14.20 Cocaine dependence, uncomplicated (principal); F17.210 Nicotine dependence, cigarettes, uncomplicated; F41.9 Anxiety disorder, unspecified; G40.909 Epilepsy, unspecified, not intractable, without status epilepticus; J44.9 Chronic obstructive pulmonary disease, unspecified; K21.9 Gastro-esophageal reflux disease without esophagitis; M06.9 Rheumatoid arthritis, unspecified; M54.50 Low back pain, unspecified; G89.29 Other chronic pain
CPT/HCPCS: 36415; 80053; 80156; 80175; 81003; 82962; 85027; 86780; 87086; C9803-CS; U0003; U0005